=== PATIENT | male | born 1990 | race Caucasian/White ===

== ENCOUNTER → 2017-08-21 | Outpatient (CLI) | payer OTHER ==
--- NOTE | 2017-08-23 23:48 | MR ---
History wrist pain. Clicking. Swelling. Comparison none. TECHNIQUE: Multiplanar multiecho imaging of the right wrist was performed with no contrast. FINDINGS: There is increased signal on the medial aspect of the lunate bone consistent with a bone bruise. I se e no fracture. The other carpal bones appear intact. Distal radius and ulna appear intact. Triangular cartilage appears intact. There is increased synovial fluid around the entire carpus. There is 8 mm cystic fluid collection anterior to the distal ulna consistent with a synovial cyst. I see no signifi cant joint space narrowing. The flexor and extensor tendons of the wrist appear intact. CONCLUSION: Increased signal in the lunate on the T2 images is suggestive of a bone bruise. Increased carpal syno vial fluid is suggestive of a nonspecific synovitis. Small synovial cyst anterior to the distal ulna. No fracture seen.
== END | disposition home or self-care (01) ==
LOC: RADMRIMAIN 15:05
PROVIDERS: ATTEND Orthopaedic Surgery
DX: M71.331 Other bursal cyst, right wrist (principal)
CPT/HCPCS: 73221; A9581

== ENCOUNTER 2019-05-17 00:40 | Emergency (ER) | payer OTHER ==
[2019-05-17] MEDS ORDERED: KETOROLAC 30 MG/ML 1 ML VIAL IM STA (01:14)
--- NOTE | 2019-05-17 01:41 | XR ---
EXAMINATION TYPE: XR foot complete LT DATE OF EXAM: 05/17/2019 COMPARISON: NONE HISTORY: Pain TECHNIQUE: 3 views FINDINGS: Metatarsals are intact. I see no fracture nor dislocation. There are no erosions. IMPRESSION: Negative left foot exam.
--- NOTE | 2019-05-17 01:41 | XR ---
EXAMINATION TYPE: XR ankle complete LT DATE OF EXAM: 05/17/2019 COMPARISON: NONE HISTORY: Pain TECHNIQUE: 3 views FINDINGS: Ankle mortise is anatomic. I see no fracture nor dislocation. There is an Achilles calcanea l spur. IMPRESSION: Calcaneal spurring. No fracture seen.
--- NOTE | 2019-05-17 01:55 | ED ---
Lower Extremity Injury HPI - General Chief Complaint: Extremity Injury, Lower Stated Complaint: [facility] L Foot Injury Time Seen by Provider: 05/17/19 01:01 Source: patient Mode of arrival: ambulatory Limitations: no limitations - History of Present Illness Initial Comments: Patient is a 28-year-old male presenting to emergency Department with a chief complaint of foot injury. Patient reports he was at work when he dropped a large, heavy piece of metal/joana on his left foot. Patient states he was wearing steel toe boots but the large metal piece fell on the proximal end of the shoe. Patient does report pain only with inversion and eversion but no pain with plantar dorsiflexion. Denies any numbness or tingling. Denies taking any medication to alleviate the symptoms. Denies swelling or skin discoloration - Related Data Allergies Allergy/AdvReac Type Severity Reaction Status Date / Time No Known Allergies Allergy Verified 05/17/19 00:53 Review of Systems ROS Statement: Those systems with pertinent positive or pertinent negative responses have been documented in the HPI. ROS Other: All systems not noted in ROS Statement are negative. Past Medical History Past Medical History: No Reported History History of Any Multi-Drug Resistant Organisms: None Reported Past Surgical History: No Surgical Hx Reported Past Psychological History: No Psychological Hx Reported Smoking Status: Never smoker Past Alcohol Use History: None Reported Past Drug Use History: None Reported General Exam Limitations: no limitations General appearance: alert, in no apparent distress Head exam: Present: atraumatic, normocephalic, normal inspection Eye exam: Present: normal appearance, PERRL, EOMI Pupils: Present: normal accommodation ENT exam: Present: normal exam, mucous membranes moist Neck exam: Present: normal inspection, full ROM Respiratory exam: Present: normal lung sounds bilaterally Cardiovascular Exam: Present: regular rate, normal rhythm, normal heart sounds Extremities exam: Present: normal inspection (No signs of obvious trauma. No swelling.), full ROM (Mild pain with eversion and inversion, although patient is able to move at full range of motion.), tenderness (Tenderness at the anterior aspect of the proximal foot.), normal capillary refill, other (+2 dorsalis pedis and posterior tibialis bilaterally. Patient ambulate without issues.). Absent: joint swelling Back exam: Present: normal inspection, full ROM Neurological exam: Present: alert, oriented X3 Psychiatric exam: Present: normal affect, normal mood Skin exam: Present: warm, dry, intact, normal color Course Vital Signs 05/17/19 00:49 Temperature 99 F Pulse Rate 84 Respiratory 20 Rate Blood Pressure 145/66 O2 Sat by Pulse 99 Oximetry Procedures - Orthopedic Splinting/Casting Injury #1 Side: left Lower Extremity Injury Location: ankle, foot Lower Extremity Immobilizer: Abelino wrap Medical Decision Making - Medical Decision Making Patient is a 28-year-old male presenting to emergency Department with a chief complaint of foot injury. Patient dropped a metal joana of the proximal left foot. No signs of obvious trauma physical examination patient has mild pain with eversion and inversion. Patient is otherwise walking without issues. X- ray of the foot shows some calcaneal spurring but otherwise no fracture dislocations. Ankle x-rays also unremarkable. Patient neurovascularly intact in the left lower extremity. Patient given Toradol for pain. Patient advised to alternate between Tylenol and Motrin for pain control. Abelino wrap applied. He was advised to follow with orthopedics if symptoms not improved. Strict return parameters were thoroughly discussed with patient was understanding and agreeable. Case discussed with physician. Disposition Clinical Impression: Injury of left foot, Left foot pain, Contusion of foot, left Disposition: HOME SELF-CARE Condition: Stable Instructions (If sedation given, give patient instructions): Foot Contusion (ED) Additional Instructions: Alternate between Tylenol and Motrin for pain control. Otherwise compress to minimize symptoms. Follow-up with orthopedics if symptoms not improve. Return to emergency department if symptoms worsen. Is patient prescribed a controlled substance at d/c from ED?: No Referrals: Renetta Maza MD [Primary Care Provider] - 1-2 days Time of Disposition: 01:50
[2019-05-17 01:58] VITALS: BP 144/86; PULSE 75; RESP 19; TEMP 98.8
== END 2019-05-17 02:05 | disposition home or self-care (01) ==
LOC: EC 00:40
DX: S90.32XA Contusion of left foot, initial encounter (principal); M77.32 Calcaneal spur, left foot; W20.8XXA Other cause of strike by thrown, projected or falling object, initial encounter; Y92.69 Other specified industrial and construction area as the place of occurrence of the external cause; Y99.0 Civilian activity done for income or pay
CPT/HCPCS: 73610; 73630; 99283; 96372; J1885

== ENCOUNTER → 2020-02-28 | Outpatient (CLI) | payer OTHER ==
--- NOTE | 2020-02-28 15:22 | US ---
EXAMINATION TYPE: US groin LT DATE OF EXAM: 02/28/2020 COMPARISON: NONE CLINICAL HISTORY: R10.32 LLQ Abdominal pain. Left groin pain post lifting injury. Left groin scanned over area of pain. Valsalva maneuver was utilized. No hernia seen by ultrasound. N o other abnormality noted. IMPRESSION: No hernia seen by ultrasound.
== END | disposition home or self-care (01) ==
LOC: RADUSWWP 14:54
PROVIDERS: ATTEND Family Medicine
DX: R10.32 Left lower quadrant pain (principal)

== ENCOUNTER → 2020-05-11 | Outpatient (CLI) | payer OTHER ==
[2020-05-11 14:36] LABS: Basophils % (A) 1 %; Eosinophils # (A) 0.1 k/uL (0-0.7); Eosinophils % (A) 1 %; HCT 45.4 % (39.0-53.0); Lymphocytes # (A) 2.1 k/uL (1.0-4.8); Lymphocytes % (A) 33 %; MCH 29.5 pg (25.0-35.0); MCV 89.3 fL (80.0-100.0); Mean Platelet Volume 6.7; Monocytes # (A) 0.4 k/uL (0-1.0); Monocytes % (A) 7 %; Neutrophils # (A) 3.6 k/uL (1.3-7.7); Neutrophils % (A) 57 %; Platelet Count 277 k/uL (150-450); RBC 5.08 m/uL (4.30-5.90); RDW 13.3 % (11.5-15.5); WBC 6.4 k/uL (3.8-10.6)
== END | disposition home or self-care (01) ==
LOC: LABPAT 12:18
PROVIDERS: ATTEND Surgery
DX: Z01.818 Encounter for other preprocedural examination (principal); Z20.822 Contact with and (suspected) exposure to COVID-19
CPT/HCPCS: 85025; 93005; U0003; C9803; U0005

== ENCOUNTER 2020-05-18 09:52 | Day surgery (SDC) | payer OTHER ==
[2020-05-14 15:05] VITALS: BMI 30.1
[~2020-05-18 09:52] MED LIST: DEXAMETHASONE SOD PHOSPHATE 4 MG/ML 1 ML VIAL IV ONE; HEPARIN SODIUM,PORCINE 5,000 UNIT/ML 1 ML VIAL SQ PRN; LACTATED RINGERS 1,000 ML IV SCH; LIDOCAINE 1% (10MG/ML) FOR IV START INTRADERMA PRN; MIDAZOLAM 2 MG/2 ML VIAL IV PRN; ONDANSETRON 4 MG/2 ML VIAL IVP ONE
[2020-05-18] MEDS ORDERED: fentaNYL (PF) 50 MCG/ML 2 ML AMP IVP ONE (10:55)
--- NOTE | 2020-05-18 11:48 | P.ANPRN ---
Procedure Note - Anesthesia - Nerve Block Performed Bilateral Transversus Abdominis Single Time Out Performed: Yes ([id number]) Date of Procedure: 05/18/20 Procedure Start Time: 10:55 Procedure Stop Time: 11:03 Location of Patient: PreOp Indication: Acute Post-Operative Pain, Requested by Surgeon Specifically requested for management of pain by : Radha Zayas Sedation Type: Sedate with meaningful contact maintained Preparation: Sterile Prep Position: Supine Catheter: None Needle Types: Pajunk Needle Gauge: 21 Ultrasound used to visualize needle placement: Yes Ultrasound used to observe medication spread: Yes Injectate: 0.5% Ropivacaine (see comment for volume) (20cc each side) Blood Aspirated: No Pain Paresthesia on Injection Noted: No Resistance on Injection: Normal Image Stored and Saved: Yes Events: Uneventful and Well Tolerated
[2020-05-18] MEDS ORDERED: MIDAZOLAM 2 MG/2 ML VIAL ONE (12:04)
[2020-05-18] MEDS ORDERED: PROPOFOL 10 MG/ML 20 ML VIAL IV ONE (12:04)
[2020-05-18] MEDS ORDERED: ROCURONIUM 10 MG/ML (10 ML VIAL) IV ONE (12:04)
[2020-05-18] MEDS ORDERED: KETOROLAC 15 MG/ML 1 ML VIAL ONE (12:04)
[2020-05-18] MEDS ORDERED: GLYCOPYRROLATE 0.2 MG/ML 2 ML VIAL ONE (12:04)
[2020-05-18] MEDS ORDERED: SUCCINYLCHOLINE CHLORIDE 100 MG/5 ML SYR IV ONE (12:04)
[2020-05-18] MEDS ORDERED: fentaNYL (PF) 50 MCG/ML 2 ML AMP ONE (12:04)
[2020-05-18] MEDS ORDERED: NEOSTIGMINE 1 MG/ML 10 ML VIAL ONE (12:04)
[2020-05-18] MEDS ORDERED: LIDOCAINE 1% INJ 10MG/ML (20 ML MDV) ONE (12:04)
[2020-05-18] MEDS ORDERED: LIDOCAINE 2%-EPI 1:100,000 20 ML VIAL SQ ONE ×2 (12:27)
[2020-05-18] MEDS ORDERED: LACTATED RINGERS 1,000 ML IV ONE (12:57)
--- NOTE | 2020-05-18 13:20 | P.OP ---
Date of Procedure: 05/18/20 Preoperative Diagnosis: Left inguinal hernia Postoperative Diagnosis: Left inguinal hernia Procedure(s) Performed: Robotic left inguinal hernia repair with mesh Anesthesia: DAVI Surgeon: Radha Zayas Pathology: none sent Condition: stable Disposition: same day Indications for Procedure: 29-year-old male presents for elective left anal hernia repair. He has been having pain with the left inguinal region recently. On workup, he was found to have a moderate-sized left anal hernia. Risks, benefits and alternatives were provided to the patient. He did provide consent prior to attending the operating suite. Operative Findings: Left inguinal indirect hernia Description of Procedure: The patient was brought back to the operating suite and placed in supine position. After general endotracheal anesthesia was induced, arms were tucked to his sides bilaterally and all pressure points were padded. SCDs were also placed in his bilateral lower shoulder reasonable working throughout the case. Preoperative antibiotics were given prior to the incision. A timeout was performed with all team members in agreement with correct patient, procedure and location. A super umbilical incision was made approximately 27 years superior to the pubic symphysis. The abdomen was then entered under direct visualization. At this point, pneumoperitoneum was achieved. 2 additional incisions were made approximately 11 7 m lateral to the super umbilical incision and 8 mm trochars were placed. The patient was then placed in Trendelenburg position and the hernia site was clearly visualized on the left side. This was noted as a in indirect inguinal hernia. The robot was then docked appropriately. Incision was then made just lateral to the medial umbilical ligament on the left side with the monopolar scissors and the peritoneal flap was created and was taken down towards Fer's ligament. The flap was then extended laterally. Attention was then turned to the indirect inguinal hernia. The sac was then freed from the cord, all while preserving the cord structures. At this point, the indirect hernia was reduced. Once interspace was appropriately dissected out, we brought the laparoscopic anatomic parietex progrip mesh and unrolled it over the hernia site. Once appropriately in place, the peritoneal flap was closed using a running 20V lock suture. Once this was completed, we removed all the robotic instruments undocked the robot. The super umbilical fascial incision was closed with a 0 Vicryl suture using the Donnell Kenyon device. This was done under laparoscopic guidance. All skin incisions were then closed with 4-0 Vicryl suture. The Capps catheter was removed. The patient was awakened and taken to the recovery unit in stable condition.
[2020-05-18 13:22] VITALS: TEMP 99
[2020-05-18 14:00] VITALS: RESP 20
[2020-05-18 14:35] VITALS: BP 141/76; PULSE 79
[2020-05-19] MEDS ORDERED: HYDROmorphone 0.5 MG/0.5 ML SYRINGE IVP PRN (07:00)
== END 2020-05-18 15:06 | disposition home or self-care (01) ==
LOC: OR 09:52
PROVIDERS: ATTEND Surgery
DX: K40.90 Unilateral inguinal hernia, without obstruction or gangrene, not specified as recurrent (principal); K64.9 Unspecified hemorrhoids; F32.9 Major depressive disorder, single episode, unspecified; F17.200 Nicotine dependence, unspecified, uncomplicated
CPT/HCPCS: 49650; S2900; 64488; 86850; 86900; 86901

== ENCOUNTER → 2022-04-02 | Outpatient (CLI) | payer OTHER ==
--- NOTE | 2022-04-02 18:01 | US ---
EXAMINATION TYPE: US groin LT DATE OF EXAM: 04/02/2022 COMPARISON: US 2019 CLINICAL HISTORY: R10.32. LLQ/ left groin pain. Hx of hernia repair near the area of pain. Scanned left lower quadrant into the left groin at patient's two areas of pain. No abnormalities seen by ultrasound at this time. Consider CT pelvis with intravenous contrast to further evaluate. IMPRESSION: 1. No ultrasound abnormality left groin region.
== END | disposition home or self-care (01) ==
LOC: RADUSWWP 10:20
PROVIDERS: ATTEND Family Medicine
DX: R10.32 Left lower quadrant pain (principal)